=== PATIENT | female | born 1935 | race African-American/Black ===

== ENCOUNTER 2019-04-08 09:45 | Emergency (ER) | payer MEDICARE, MEDICAID ==
[~2019-04-08] VITALS: Ht 162.6 cm; Wt 89.8 kg
[2019-04-08] MEDS ORDERED: ONDANSETRON HCL 4MG/2ML INJ IV STA (09:59)
[2019-04-08] MEDS ORDERED: HYDRALAZINE 20MG/ML VIAL IV ONE (10:00)
[2019-04-08] MEDS ORDERED: PREG75CA PO (10:03)
[2019-04-08] MEDS ORDERED: LOSA100T32 PO (10:03)
[2019-04-08] MEDS ORDERED: vitamin d2 (10:03)
[2019-04-08] MEDS ORDERED: ALPR0.25 PO (10:03)
[2019-04-08] MEDS ORDERED: POTA8CAP20 PO (10:03)
[2019-04-08] MEDS ORDERED: FURO-151 PO (10:03)
[2019-04-08] MEDS ORDERED: IBUP-2030 PO (10:03)
[2019-04-08] MEDS ORDERED: VALS320T2 PO (10:03)
[2019-04-08] MEDS ORDERED: ASPI-1393 PO (10:03)
[2019-04-08] MEDS ORDERED: SIMV20TA2 PO (10:03)
[2019-04-08] MEDS ORDERED: METF-815 PO (10:03)
[2019-04-08] MEDS ORDERED: TRAZ-251 PO (10:03)
[2019-04-08] MEDS ORDERED: ATEN50TA PO (10:03)
[2019-04-08 10:13] LABS: BASOPHILS % 1.1 % (0.0-2.0); EOSINOPHILS % 2.6 % (0.0-5.0); HEMATOCRIT. 38.5 % (36.0-48.0); HEMOGLOBIN. 12.7 g/dL (12.0-16.0); LYMPHOCYTES % 36.9 % (20.0-50.0); MEAN CORPUSCULAR HEMOGLOBIN 29.3 pg (28.0-32.0); MEAN CORPUSCULAR VOLUME 88.5 fL (81.0-99.0); MEAN PLATELET VOLUME 9.4 fl (7.4-10.4); MONOCYTES % 8.6 % (2.0-8.0); NEUTROPHILS % 50.8 % (40.0-76.0); PLATELET 226 x1000/uL (130-400); RED BLOOD CELL COUNT 4.35 mill/uL (4.2-5.4); RED CELL DISTRIBUTION WIDTH 13.7 % (11.6-14.6)
[2019-04-08 10:21] LABS: CHLORIDE 108 mEq/L (98-107)
[2019-04-08 10:25] LABS: ETHANOL BLOOD < 10 mg/dL
[2019-04-08 10:28] LABS: LDL CHOLESTEROL 95 mg/dL (5-100)
[2019-04-08 10:36] LABS: D-DIMER 0.96 mg/L FEU (<0.50); PARTIAL THROMBOPLASTIN TIME 23.7 sec (23.4-31.0); PROTHROMBIN TIME 10.3 sec (9.6-11.0)
[2019-04-08] MEDS ORDERED: ALTEPLASE 100MG/VIAL IV NR (11:05)
[2019-04-08] MEDS ORDERED: CONTAINER EMPTY IV NR (11:05)
[2019-04-08] MEDS ORDERED: ALTEPLASE IV NR (11:05)
[2019-04-08] MEDS ORDERED: MORPHINE SULFATE 2 MG/ML CPJ (NOT FOR IM USE) IV ONE (11:15)
[2019-04-08] MEDS ORDERED: *NO ASPIRIN X 24 HOURS XX SCH (11:30)
[2019-04-08 12:21] LABS: CLARITY URINE CLEAR (CLEAR); COLOR URINE YELLOW (YELLOW); KETONES URINE NEGATIVE (NEGATIVE); LEUKOCYTE ESTERASE URINE NEGATIVE (NEGATIVE); NITRITE URINE NEGATIVE (NEGATIVE); OCCULT BLOOD URINE NEGATIVE (NEGATIVE); PH URINE 8.5 (4.5-8.0); PROTEIN URINE NEGATIVE (NEGATIVE); SPECIFIC GRAVITY URINE 1.016 (1.005-1.030); UROBILINOGEN URINE 0.2 E.U./dL (0.2-1.0)
[2019-04-08 12:25] LABS: PHENCYCLIDINE URINE SCREEN NEGATIVE (NEGATIVE)
[2019-04-08 12:47] LABS: *AMPHETAMINES SCREEN URINE NEGATIVE (NEGATIVE)
[2019-04-08 12:48] LABS: *BARBITURATES SCREEN URINE NEGATIVE (NEGATIVE)
[2019-04-08 12:49] LABS: *BENZODIAZEPINES SCREEN URINE NEGATIVE (NEGATIVE)
[2019-04-08 12:51] LABS: *COCAINE SCREEN URINE NEGATIVE (NEGATIVE)
[2019-04-08 12:54] LABS: METHADONE URINE SCREEN NEGATIVE (NEGATIVE); OPIATES URINE SCREEN NEGATIVE (NEGATIVE)
[2019-04-08 12:56] LABS: CANNABINOID URINE SCREEN NEGATIVE (NEGATIVE)
[2019-04-08 13:05] VITALS: BP 167/96
[2019-04-08] MEDS ORDERED: IOHEXOL-350 100 ML BOTTLE ONE (13:45)
== END 2019-04-08 13:03 | disposition short-term general hospital (02) ==
LOC: ER 10:06 → CANBEDREQ 04-09 08:11
DX: I63.9 Cerebral infarction, unspecified (principal); I10 Essential (primary) hypertension; E11.9 Type 2 diabetes mellitus without complications; E78.00 Pure hypercholesterolemia, unspecified; Z79.899 Other long term (current) drug therapy
CPT/HCPCS: 36415; 37195; 70450; 70496; 71045; 74176; 80053; 80305; 80320; 81003; 82962; 83721; 83880; 84484; 85025; 85379; 85610; 85730; 93005; 96374; 96375; 99291; J0360; J2270; J2405; J2997; Q9967; J7060; G0480